=== PATIENT | female | born 1965 | race Caucasian/White ===

== ENCOUNTER 2017-03-11 11:20 | Emergency (ER) | payer SELFPAY | END 2017-03-11 23:59 | disposition home or self-care (01) | LOC: ER 11:22 | DX: Z53.21 Procedure and treatment not carried out due to patient leaving prior to being seen by health care provider (principal) ==

== ENCOUNTER 2017-03-12 09:10 | Inpatient (IN) | payer SELFPAY ==
[2017-03-12] MEDS ORDERED: predniSONE 10 MG TABLET PO SCH ×3 (10:00)
[2017-03-12] MEDS ORDERED: DULOXETINE HCL 30 MG CAPSULE.DR PO SCH (10:00)
[2017-03-12] MEDS ORDERED: RIVAROXABAN 15 MG TABLET PO SCH (10:00)
[2017-03-12] MEDS ORDERED: AMIODARONE HCL 200 MG TABLET PO SCH (10:00)
[2017-03-12] MEDS ORDERED: RIVAROXABAN 10 MG TABLET PO SCH (10:30)
== END 2017-03-13 14:32 | disposition home or self-care (01) | DRG 392 ==
LOC: SA 09:10
PROVIDERS: ADMIT Internal Medicine; ATTEND Internal Medicine
DX: R10.9 Unspecified abdominal pain (principal)